=== PATIENT | female | born 1960 | race Caucasian/White ===

== ENCOUNTER → 2017-03-30 12:27 | Outpatient (CLI) | payer BC ==
[2012-03-31 07:29] VITALS: BMI 20.5
== END | disposition home or self-care (01) ==
LOC: D.MAMMO 09:15
DX: Z12.31 Encounter for screening mammogram for malignant neoplasm of breast (principal)

== ENCOUNTER 2018-03-07 12:55 | Emergency (ER) | payer MEDICARE ==
[~2018-03-07] VITALS: Ht 167.6 cm; Wt 59.1 kg
[2018-03-07 13:06] VITALS: Ht 167.6 cm; Wt 59.1 kg
[2018-03-07] MEDS ORDERED: NORVASC5 MG (13:08)
[2018-03-07] MEDS ORDERED: PREMARIN0.625 MG (13:08)
[2018-03-07] MEDS ORDERED: PRINZIDE 20/12.1 TA1 (13:08)
[2018-03-07] MEDS ORDERED: SYNTHROID25 MCG (13:09)
[2018-03-07] MEDS ORDERED: VITAMIN B-121000 MCG (13:09)
[2018-03-07] MEDS ORDERED: CELEXA20 MG (13:09)
[2018-03-07 13:31] LABS: BASOPHILS 0.4 % (0-2); EOSINOPHILS 0.8 % (0-7); HEMATOCRIT 56.2 % (36.0-48.0); HEMOGLOBIN 20.5 g/dL (12-16); IMMATURE GRANULOCYTES 0.6 % (0-5); LYMPHOCYTES 10.1 % (15-50); MCH 37.5 pg (26.0-34.0); MCHC 36.5 g/dL (31.0-37.0); MCV 102.7 fL (80.0-100.0); MEAN PLATELET VOLUME 10.3 fL (7.4-10.4); MONOCYTES 10.1 % (2-11); PLATELET COUNT 247 10x3/uL (130-400); RBC 5.47 10x6/uL (4.00-5.40); RDW 13.6 % (11.5-14.5); WBC 11.8 10x3/uL (4.8-10.8)
[2018-03-07 13:40] LABS: APTT 29.3 SECONDS (22.8-39.4); INR 1.02 (0.85-1.17)
[2018-03-07 13:41] LABS: D-DIMER-QUANTITATIVE 2.91 ug/mLFEU (0.20-0.54)
[2018-03-07 14:07] LABS: ALBUMIN 3.8 g/dL (3.4-5.0); ALKALINE PHOSPHATASE 68 U/L (46-116); ALT (SGPT) 23 U/L (10-68); BILIRUBIN - TOTAL 0.95 mg/dL (0.2-1.3); CALC OSMOLALITY 260 mosm/kg (275-300); CARBON DIOXIDE 25.5 mmol/L (21.0-32.0); CHLORIDE - SERUM 91 mmol/L (98-107); CKMB 3.6 U/L (0.0-3.6); CREATINE KINASE 60 UL (21-215); GLUCOSE 101 mg/dL (74-106); MAGNESIUM - SERUM 1.1 mg/dL (1.8-2.4); POTASSIUM - SERUM 3.8 mmol/L (3.5-5.1); PRO BNP 71 pg/mL (0-125); PROTEIN - SERUM 7.3 g/dL (6.4-8.2); SODIUM 130 mmol/L (136-145); TROPONIN-I < 0.017 ng/mL (0.000-0.060); UREA NITROGEN 13 mg/dL (7-18); eGFR NON AFRICAN AMERICAN 60 mL/min (90-120)
[2018-03-07 14:09] LABS: CALCIUM 13.8 mg/dL (8.5-10.1)
[2018-03-07] MEDS ORDERED: OMEPRAZOLE40 MG PO (17:52)
[2018-03-07 18:30] VITALS: BP 132/71
== END 2018-03-07 18:16 | disposition home or self-care (01) ==
LOC: D.ER 12:55
PROVIDERS: Family Medicine
DX: K21.9 Gastro-esophageal reflux disease without esophagitis (principal); F17.200 Nicotine dependence, unspecified, uncomplicated

== ENCOUNTER → 2018-03-30 20:46 | Outpatient (CLI) | payer OTHER ==
[2018-03-07 13:06] VITALS: BMI 21.0
[~2018-03-30 20:46] MED LIST: CELEXA20 MG; NORVASC5 MG; OMEPRAZOLE40 MG PO; PREMARIN0.625 MG; PRINZIDE 20/12.1 TA1; SYNTHROID25 MCG; VITAMIN B-121000 MCG
== END | disposition home or self-care (01) ==
LOC: D.MAMMO 09:00
DX: Z12.31 Encounter for screening mammogram for malignant neoplasm of breast (principal)

== ENCOUNTER 2018-04-28 23:15 | Emergency (ER) | payer OTHER ==
[~2018-04-28] VITALS: Ht 167.6 cm; Wt 62.7 kg
[~2018-04-28 23:15] MED LIST changes: -CELEXA20 MG; +CELEXA40 MG PO; -NORVASC5 MG; +NORVASC5 MG PO; -PREMARIN0.625 MG; +PREMARIN0.625 MG PO; -PRINZIDE 20/12.1 TA1; +PRINZIDE 20/12.1 TA1 PO; -SYNTHROID25 MCG; +SYNTHROID25 MCG PO; -VITAMIN B-121000 MCG; +Vitamin B-12 INJ
[2018-04-28 23:26] VITALS: Ht 167.6 cm; Wt 62.7 kg
[2018-04-29 00:39] LABS: HEMATOCRIT 36.5 % (36.0-48.0); HEMOGLOBIN 13.4 g/dL (12-16); LYMPHOCYTES 12.9 % (15-50); MCH 36.6 pg (26.0-34.0); MCHC 36.7 g/dL (31.0-37.0); MCV 99.7 fL (80.0-100.0); MEAN PLATELET VOLUME 9.5 fL (7.4-10.4); NEUTROPHILS 79.9 % (40-80); PLATELET COUNT 187 10x3/uL (130-400); RBC 3.66 10x6/uL (4.00-5.40); WBC 7.7 10x3/uL (4.8-10.8)
[2018-04-29 00:48] LABS: ALBUMIN 3.7 g/dL (3.4-5.0); ANION GAP 14.4 mmol/L (8-16); BILIRUBIN - TOTAL 0.38 mg/dL (0.2-1.3); CALCIUM 8.9 mg/dL (8.5-10.1); CREATININE - SERUM 0.9 mg/dL (0.6-1.3); POTASSIUM - SERUM 3.4 mmol/L (3.5-5.1); PROTEIN - SERUM 7.2 g/dL (6.4-8.2)
[2018-04-29] MEDS ORDERED: PERCOCET 5-3251 TAB PO (02:25)
[2018-04-29 02:43] VITALS: BP 137/81
[2018-05-02] MEDS ORDERED: HYDROCODON-ACE1 EAC7 PO (17:18)
== END 2018-04-29 02:43 | disposition home or self-care (01) ==
LOC: D.ER 23:15
PROVIDERS: Family Medicine
DX: S52.502A Unspecified fracture of the lower end of left radius, initial encounter for closed fracture (principal); S52.202A Unspecified fracture of shaft of left ulna, initial encounter for closed fracture; W18.31XA Fall on same level due to stepping on an object, initial encounter; Y93.89 Activity, other specified; Y92.019 Unspecified place in single-family (private) house as the place of occurrence of the external cause; S41.112A Laceration without foreign body of left upper arm, initial encounter

== ENCOUNTER 2018-05-03 15:27 | Day surgery (SDC) | payer OTHER ==
[~2018-05-03] VITALS: Ht 167.6 cm; Wt 62.7 kg
--- NOTE | ~2018-05-03 | OP ---
PATIENT NAME: DARIUS PA MEDICAL RECORD: [id number] :58 LOCATION:[facility] ADMISSION DATE: SURGEON: ALEX DOVER DO DATE OF OPERATION: 05/04/2018 PROCEDURE PERFORMED: Left distal radius and ulna open reduction internal fixation. PREOPERATIVE DIAGNOSIS: Closed displaced left distal radius and ulna fracture. POSTOPERATIVE DIAGNOSIS: Closed displaced left distal radius and ulna fracture. INDICATIONS: Ms. Pa is a 57-year-old female who fell over a blind dog and fell onto her wrist with her hand outstretched, sustained a fracture. The ulna fractured in the distal shaft and displaced and shortened. Distal radius as well fractured and was minimally displaced, but it did go intra-articular. She was seen in the ER, then sent to my clinic. She was signed up for procedure and then due to OR time constraints, she had to be admitted and done on today. She is aware of the risks and benefits of procedure including damage to nerves and vessels. The nerves on the ulnar sensory nerves on the dorsal aspect of the hand she was warned about and the damage to any other skin nerves. She is aware of those risks and consented to the procedure as well as infection, bleeding, and the need for further surgery. SURGEON: Alex Dover DO DESCRIPTION OF THE PROCEDURE: The patient was given a block by anesthesia in preoperative area. She was taken to the operative suite, laid in the supine position, given 2 grams Ancef. The left upper extremity was esmarched and exsanguinated and a tourniquet was inflated to 250 mmHg and was up for 64 minutes throughout the procedure. She did have rings remained on her ring finger on the left hand. They were removed with 1/2 inch packing, 4 rings were removed individually. Then, the left upper extremity was prepped and draped in sterile fashion. A timeout was performed, everyone was in agreement with the correct side, site, patient, and the procedure. The incision then began on the ulnar border between the extensor carpi ulnaris and flexor carpi ulnaris. Careful dissection was made down to the ulna itself. The pronator quadratus was lifted off the distal aspect of the ulna and the ulna was reduced. The plate was put on to the ulna at that time and a screw was locked into the shaft. A K-wire was used, secured distally. Then, 4 locking screws were put distally and then the remainder of the screws were put into the shaft. These screws were all put into place and x-rays were taken to confirm they are in good position and there was nice reduction of the ulna. Attention was then drawn to the distal radius. After the ulna was done, attention was drawn to the radius. The incision began over the flexor carpi radialis tendon and careful dissection was made down to the radius itself moving the FPL and the pronator quadratus out of the way. The fracture was exposed and reduced and the plate was put on putting the screws in distally first and securing the plate with K-wire and the screws and distally through the locking guide and then into the shaft. Three screws were put into the shaft and then 1 put in the radial styloid. This was confirmed to be in good position on x-ray. Tourniquet was let down. Any bleeding was coagulated at that time. The wounds were both thoroughly irrigated. Skin was closed with 3-0 Vicryl in an interrupted fashion and then Prineo was placed on the skin. Adaptic, 4 x 4's, Webril and a volar splint and Juan wrap was placed and secured in, and the patient was awakened and taken to OPERATIVE REPORT [id number] DARIUS PA recovery in stable condition. Blood loss approximately 100 mL. COMPLICATIONS: None. TRANSINT:[id number] Voice Confirmation ID: [id number] DOCUMENT ID: [id number] ALEX DOVER DO at 0701 CC: [id number] DICTATION DATE: 05/04/18 1559 [employer] SUPERVISOR: 05/04/18 2302 [facility] 05/04/18 [place] [id number]
[~2018-05-03 15:27] MED LIST changes: +HYDROCODON-ACE1 EAC7 PO; +PERCOCET 5-3251 TAB PO
[2018-05-03 16:08] LABS: HEMATOCRIT 36.8 % (36.0-48.0); HEMOGLOBIN 12.9 g/dL (12-16); MCH 35.5 pg (26.0-34.0); MCHC 35.1 g/dL (31.0-37.0); MCV 101.4 fL (80.0-100.0); MEAN PLATELET VOLUME 9.9 fL (7.4-10.4); RBC 3.63 10x6/uL (4.00-5.40); RDW 13.3 % (11.5-14.5); WBC 7.3 10x3/uL (4.8-10.8)
[2018-05-03 16:43] VITALS: BMI 21.0
[2018-05-03 20:00] VITALS: BP 100/55
[2018-05-03 22:52] VITALS: BP 100/55; Ht 167.6 cm; Wt 62.7 kg
[2018-05-04] VITALS: BP 100/55
[2018-05-04 04:00] VITALS: BP 107/60
[2018-05-04 08:15] VITALS: BP 106/64
[2018-05-04 14:39] VITALS: BP 117/78
[2018-05-04] MEDS ORDERED: OXYCODONE HCL5 M1 PO (17:39)
[2018-05-04] MEDS ORDERED: VISTARIL50 MG PO (17:39)
[2018-05-04] MEDS ORDERED: BACTRIM DS1 TAB PO (17:40)
== END 2018-05-04 18:30 | disposition home or self-care (01) ==
LOC: D.MS 15:27 → D.PAN 15:27 → D.OPS 19:15 → D.MS 20:56 → D.PAN 05-04 18:30
PROVIDERS: Anesthesiology
DX: S52.502A Unspecified fracture of the lower end of left radius, initial encounter for closed fracture (principal); S52.602A Unspecified fracture of lower end of left ulna, initial encounter for closed fracture; W01.0XXA Fall on same level from slipping, tripping and stumbling without subsequent striking against object, initial encounter; Z79.890 Hormone replacement therapy; Z79.899 Other long term (current) drug therapy

== ENCOUNTER 2018-09-21 10:23 | Day surgery (SDC) | payer OTHER ==
[~2018-09-21] VITALS: Ht 167.6 cm; Wt 61.2 kg
[~2018-09-21 10:23] MED LIST changes: +BACTRIM DS1 TAB PO; +OXYCODONE HCL5 M1 PO; +VISTARIL50 MG PO
[2018-09-21 11:33] LABS: HEMATOCRIT 48.7 % (36.0-48.0); HEMOGLOBIN 16.8 g/dL (12-16); MCH 36.2 pg (26.0-34.0); MCHC 34.5 g/dL (31.0-37.0); RBC 4.64 10x6/uL (4.00-5.40); RDW 15.3 % (11.5-14.5); WBC 6.4 10x3/uL (4.8-10.8)
[2018-09-21 11:59] VITALS: BP 120/63; Ht 167.6 cm; Wt 61.2 kg
[2018-09-21] MEDS ORDERED: DILAUDID4 MG PO (16:13)
[2018-09-21] MEDS ORDERED: VISTARIL50 MG PO (16:14)
[2018-09-21] MEDS ORDERED: ZOFRAN ODT4 MG/UDTAB PO (16:14)
[2018-09-21] MEDS ORDERED: DURICEF500 MG PO (16:15)
--- NOTE | 2018-09-21 17:05 | NUR ---
REC'D FROM [facility]. DRESSING CDI TO LLE. FAMILY AT BEDSIDE. CRANBERRY JUICE BROUGHT TO PT. VS 118/64, HR98, RESP16, O2 SAT 95%.
--- NOTE | 2018-09-21 17:35 | NUR ---
VS 114/69, HR105, RESP16, O2 SAT 96%. FULL LIQUID TRAY BROUGHT TO PATIENT.
--- NOTE | 2018-09-21 18:05 | NUR ---
TOLERATED FL TRAY. IV DC'D WITH CATHETER INTACT.
--- NOTE | 2018-09-21 18:10 | NUR ---
WRITTEN AND VERBAL DC INST. GIVEN TO PATIENT ALONG WITH RX'S. VERBALIZED UNDERSTANDING.
--- NOTE | 2018-09-21 18:30 | NUR ---
DC'D HOME WITH FRIEND/FAMILY VIA PRIVATE VEHICLE. TAKEN TO VEHICLE VIA WC. STABLE AT TIME OF DC.
--- NOTE | 2018-09-21 20:47 | OP ---
PATIENT NAME: DARIUS CAAL MEDICAL RECORD: [id number] :58 LOCATION:[facility] ADMISSION DATE: SURGEON: ALEX DOVER DO DATE OF OPERATION: 09/21/2018 PROCEDURE PERFORMED: Left fourth and fifth metatarsal open reduction and internal fixation. PREOPERATIVE DIAGNOSIS: Comminuted and displaced left fourth and fifth metatarsal fractures. POSTOPERATIVE DIAGNOSIS: Comminuted and displaced left fourth and fifth metatarsal fractures. INDICATIONS: Ms. Champion is a 57-year-old female who dropped something heavy on her left foot while moving into a new place. She had severe pain immediately following that. She had x-rays done which showed a displaced and comminuted fifth and fourth metatarsal shaft fractures. She was seen in my office and x-rays were taken due to the comminution and shortening of the fifth. It was indicated to her that if she did want continued pain, it could heal in that position; but she would probably need surgery. Knowing the risks including damage to nerves in the foot, continued numbness, infection, bleeding, blood clots, and even , she was okay with the risks. Nonunion, malunion, and also need for further surgery. She signed the consent. SURGEON: Alex Dover DO DESCRIPTION OF PROCEDURE: The patient was given a block by anesthesia, taken to the operative suite, laid in the supine position, and given general anesthetic. A gram of Ancef was given. The left lower extremity was prepped and draped in sterile fashion. At that time, the time-out was performed and everyone was in agreement with the correct side, site, patient, and procedure. Once the time-out was performed, the left lower extremity was exsanguinated with the Esmarch. The tourniquet was inflated to 350 mmHg, was up for 74 minutes. The incision then began in the space between the fourth and fifth metatarsals. Careful dissection was made down to the fifth metatarsal with first getting a reduction and then selecting a 7-hole plate. I pinned the plate with all K-wires and then put the screws in, first proximally and then distally, and then pulled all of the screws and put locking screws in proximally and distally. I also moved one of the distal screws, it was not a locking screw, and placed it with a locking screw and then through the shaft. To catch a large piece of the bone, a screw was put in. The dissection was then made to the fourth metatarsal. This was quite comminuted and not really seen that well on the x-ray. The reduction was made and it needed a 9-hole plate, cutting one of the screw holes off and making it an 8-hole plate. This was also pinned into place with all screws. The plate did have to be bent slightly for the proximal metatarsal. Screws were then put in it, one screw each proximally and distally, and then all wires were removed. One of the screws distally was skipped due to the fact it could not be locked in. Screws had to be removed from that and then locking screw was placed in the more proximal hole, the third hole from the end. A locking screw was placed in that and then additional locking screws were placed more proximally, bridging the fracture site. The same bridging technique was done on the fifth metatarsal due to the comminution of the shaft. The tourniquet was then let down and any bleeders were coagulated with pickup and Bovie. Skin was closed with 3-0 Vicryl in an interrupted fashion and then 4-0 OPERATIVE REPORT [id number] MIRI-NIKKO,DARIUS nylon in a horizontal mattress fashion. Adaptic, 4 x 4, and ABD were placed over the wound and on the heel. The patient was wrapped with an Juan wrap. She had a postop shoe in the room. The tourniquet was removed and noted to have a blister on the inner thigh. She was awakened and taken to recovery room in stable condition. BLOOD LOSS: Approximately 50 mL. COMPLICATIONS: Blister from the tourniquet. TRANSINT:[id number] Voice Confirmation ID: [id number] DOCUMENT ID: [id number] ALEX DOVER DO at 1481 CC: [id number] DICTATION DATE: 09/21/18 162 JAR FILLER: 09/21/181925 [facility] 09/21/18 [facility] [address] [place] [address]
== END 2018-09-21 18:30 | disposition home or self-care (01) ==
LOC: D.OPS 10:23 → D.PAN 12:00 → D.OPS 12:00
PROVIDERS: Anesthesiology; ATTEND Orthopaedic Surgery
DX: S92.342A Displaced fracture of fourth metatarsal bone, left foot, initial encounter for closed fracture (principal); S92.352A Displaced fracture of fifth metatarsal bone, left foot, initial encounter for closed fracture; W22.8XXA Striking against or struck by other objects, initial encounter; Z01.812 Encounter for preprocedural laboratory examination

== ENCOUNTER → 2018-12-21 09:05 | Outpatient (CLI) | payer OTHER ==
[2018-09-21 11:59] VITALS: BMI 21.8
[~2018-12-21 09:05] MED LIST changes: +DILAUDID4 MG PO; +DURICEF500 MG PO; +ZOFRAN ODT4 MG/UDTAB PO
[2018-12-21 09:58] LABS: HEMATOCRIT 42.6 % (36.0-48.0); HEMOGLOBIN 15.2 g/dL (12-16); LYMPHOCYTES 21.4 % (15-50); MCH 36.2 pg (26.0-34.0); MCHC 35.7 g/dL (31.0-37.0); MCV 101.4 fL (80.0-100.0); MEAN PLATELET VOLUME 9.5 fL (7.4-10.4); RDW 15.9 % (11.5-14.5); WBC 4.8 10x3/uL (4.8-10.8)
[2018-12-21 09:59] LABS: PLATELET COUNT 260 10x3/uL (130-400)
[2018-12-21 11:03] LABS: ERYTHROCYTE SEDIMENTATION RATE 1 mm/hr (0-30)
== END | disposition home or self-care (01) ==
LOC: D.LAB 09:05
PROVIDERS: ATTEND Orthopaedic Surgery
DX: S81.802A Unspecified open wound, left lower leg, initial encounter (principal)

== ENCOUNTER → 2019-07-31 18:07 | Outpatient (CLI) | payer OTHER ==
[2018-09-21 11:59] VITALS: BMI 21.8
== END | disposition home or self-care (01) ==
LOC: D.MAMMO 09:15
PROVIDERS: ATTEND Nurse Practitioner Family
DX: Z12.31 Encounter for screening mammogram for malignant neoplasm of breast (principal)